=== PATIENT | male | born 1960 | race Caucasian/White ===

== ENCOUNTER 2019-10-21 20:29 | Emergency (ER) | payer OTHER ==
[~2019-10-21] VITALS: Ht 167.6 cm; Wt 96.2 kg
[2019-10-21 20:40] VITALS: Ht 167.6 cm; Wt 96.2 kg
[2019-10-22 00:41] VITALS: BP 130/68
== END 2019-10-22 00:41 | disposition home or self-care (01) ==
LOC: ED 20:29
DX: L02.511 Cutaneous abscess of right hand (principal); E11.9 Type 2 diabetes mellitus without complications
CPT/HCPCS: J2001

== ENCOUNTER 2019-10-23 19:54 | Emergency (ER) | payer OTHER ==
[~2019-10-23] VITALS: Ht 172.7 cm; Wt 99.8 kg
[2019-10-23 20:05] VITALS: BP 152/74; Ht 172.7 cm; Wt 99.8 kg
== END 2019-10-23 20:44 | disposition home or self-care (01) ==
LOC: ED 19:54
DX: L02.413 Cutaneous abscess of right upper limb (principal); E11.9 Type 2 diabetes mellitus without complications